=== PATIENT | female | born 1960 | race Two or more races ===

== ENCOUNTER 2019-09-13 11:14 | Outpatient (CLI) | payer OTHER ==
[~2019-09-13 11:14] MED LIST: BACTROBAN OINT22 GM TP
== END 2019-09-13 12:14 | disposition home or self-care (01) ==
LOC: MAMO-SONO 11:14
DX: Z12.31 Encounter for screening mammogram for malignant neoplasm of breast (principal); Z87.898 Personal history of other specified conditions; N60.11 Diffuse cystic mastopathy of right breast; N60.12 Diffuse cystic mastopathy of left breast

== ENCOUNTER 2021-03-31 11:25 | Outpatient (CLI) | payer OTHER | END 2021-03-31 11:39 | disposition home or self-care (01) | LOC: MAMO-SONO 11:25 | PROVIDERS: ATTEND Obstetrics & Gynecology | DX: Z12.31 Encounter for screening mammogram for malignant neoplasm of breast (principal); N60.11 Diffuse cystic mastopathy of right breast; N60.12 Diffuse cystic mastopathy of left breast ==

== ENCOUNTER → 2021-04-16 | Outpatient (CLI) | payer OTHER | END | disposition home or self-care (01) | LOC: NUCLEAR 13:30 | PROVIDERS: ATTEND Obstetrics & Gynecology | DX: M81.0 Age-related osteoporosis without current pathological fracture (principal) ==

== ENCOUNTER 2023-12-26 09:53 | Outpatient (CLI) | payer OTHER | END 2023-12-26 10:05 | disposition home or self-care (01) | LOC: MAMO-SONO 09:53 | PROVIDERS: ATTEND Student in an Organized Health Care Education/Training Program | DX: N60.11 Diffuse cystic mastopathy of right breast (principal); N60.12 Diffuse cystic mastopathy of left breast ==

== ENCOUNTER 2023-12-26 11:06 | Outpatient (CLI) | payer OTHER | END 2023-12-26 11:09 | disposition home or self-care (01) | LOC: NUCLEAR 11:06 | PROVIDERS: ATTEND Student in an Organized Health Care Education/Training Program | DX: M81.0 Age-related osteoporosis without current pathological fracture (principal) ==

== ENCOUNTER 2025-02-12 10:21 | Outpatient (CLI) | payer OTHER | END 2025-02-12 10:30 | disposition home or self-care (01) | LOC: MAMO-SONO 10:21 | PROVIDERS: ATTEND Student in an Organized Health Care Education/Training Program | DX: N60.11 Diffuse cystic mastopathy of right breast (principal); N60.12 Diffuse cystic mastopathy of left breast ==